=== PATIENT | male | born 1995 | race Caucasian/White ===

== ENCOUNTER 2023-10-23 10:37 | Emergency (ER) | payer OTHER, SELFPAY ==
[2023-10-23 10:52] VITALS: BP 115/77; PULSE 97; RESP 16; TEMP 37.3; O2SAT 99; BMI 19.3
--- NOTE | 2023-10-23 11:26 | ED_ITS ---
HPI - Male Genitourinary General Chief complaint: Urogenital-Male Stated complaint: Genital issues Time Seen by Provider: 10/23/23 11:44 Source: patient Mode of arrival: ambulatory Limitations: no limitations History of Present Illness HPI Narrative: 27 year old male with no significant pmhx presents to the ED for evaluation of yellow penile discharge that began yesterday. He is sexually active with new sexual partner. Admits to recent unprotected intercourse. Reports noticing yellow discharged coming from his penis yesterday. Denies penile itching, lesions, warts, ulcers. Denies scrotal pain, swelling, redness, irritation. Denies fever, chills, dysuria, hematuria, abdominal pain. Related Data Allergies Allergy/AdvReac Type Severity Reaction Status Date / Time No Known Allergies Allergy Verified 10/23/23 10:55 Review of Systems Review of Systems: Constitutional: No fever, chills, fatigue, night sweats, weight changes ENT/Mouth: No ear pain, hearing loss, nasal congestion, sinus pain, rhinorrhea, sore throat Eyes: No eye pain, swelling, redness, vision changes, discharge Cardio: No chest pain, palpitations, ACHARYA, orthopnea, peripheral edema Pulm: No SOB, cough, sputum, wheezing, dyspnea, hemoptysis GI: No nausea, vomiting, hematemesis, abdominal pain, diarrhea, constipation, hematochezia, melena : No irregular bleeding, dysuria, frequency, urgency, hesitancy, hematuria, flank pain, urinary flow changes, urinary incontinence or retention, +penile discharge MSK: No back pain, neck pain, joint pain, myalgias Skin: No lesions, rashes Neuro: No weakness, numbness, paresthesias, LOC, dizziness, headache All other systems reviewed and are negative. [facility] Past Medical History Attestation statement: The following information was validated with the patient. Source: old records reviewed and nursing notes reviewed Onset Date is defined in the Problem List Problems that require an onset date and time if occurred within 24 hrs of arrival to the ED Aortic Dissection and Rupture; Neurologic impairment; Cardiopulmonary Arrest; Endotracheal Intubation; Insertion or Replacement of Mechanical Circulatory Assist Device Social History Social History Advance Directives: No Advance Directives Information Provided: No Physical Exam Vital Signs: Vital Signs: Last Vital Signs Temp 99.2 F 10/23/23 10:52 Pulse 97 10/23/23 10:52 Resp 16 10/23/23 10:52 BP 115/77 10/23/23 10:52 Pulse Ox 99 10/23/23 10:52 O2 Del Method Room Air 10/23/23 10:52 BMI result Body Mass Index 19.3 Vital signs stable. Const: General: cooperative, healthy appearing, comfortable and no acute distress Nutritional Appearance: average body habitus Orientation/consciousness: patient oriented x3 Limitations: no limitations Eyes: General: appearance normal, both eyes and all related structures Conjunctivae: conjunctivae normal Sclerae: sclerae normal Pupils: Equal, round and reactive pupils present Resp: Effort & Inspection: normal respiratory effort Auscultation: clear to auscultation bilaterally Cardio: Rate: regular rate Rhythm: regular rhythm GI: Other: + abdomen soft, nondistended, nontender to palpation, no rebound tenderness or guarding. Normoactive BS x4. No inguinal or femoral LAD. No palpable hernia. Inspection: Yes normal to inspection : Other: Male sensitive exam performed with SELVIN Mccormick [facility]. The penis is circumcised. There are no lesions, ulcers, warts noted to the glans or shaft. There is purulent discharge expressible from urethra. No blood. No palpable inguinal or femoral LAD. No scrotal edema or erythema. Perineum wnl. General: Yes no CVA tenderness Back/Spine/Pelvis: Back: no CVA tenderness Skin: General skin exam: no rashes or lesions noted Neuro: General: patient oriented x3 Cranial nerves: Yes Equal, round and reactive pupils present Course Course Course Narrative: 1435-- urine negative for infection however shows large amount of white blood cells likely consistent with STI. CT NG swab returned positive for gonorrhea, negative for chlamydia. Informed patient of his serology results. Will treat him with 1 dose of ceftriaxone in the emergency department. Informed him to abstain from intercourse until he has a negative test result. Advised him to inform all sexual partners as they need to be tested and treated. > I personally filled out the gonorrhea reporting form and faxed it to [facility] of infectious disease prevention division of STD prevention and HIV/aids surveillance > Patient has remained stable throughout ED visit today. Discussed strict return precautions. All questions answered at this time. Patient is agreeable with disposition and stable for discharge. Medical Decision Making Medical Decision Making [facility] Narrative: 27 year old male with no significant pmhx presents to the ED for evaluation of yellow penile discharge that began yesterday. Vital signs stable. Afebrile. On exam, patient is nontoxic-appearing and in no acute distress. Abdomen is soft, ND/NT, no rebound tenderness or guarding. Normoactive bowel sounds x4. No CVAT bilaterally. On sensitive exam, the penis is circumcised. There are no lesions, ulcers, warts noted to the glans or shaft. There is purulent discharge expressible from urethra. No blood. No palpable inguinal or femoral LAD. No scrotal edema or erythema. Perineum wnl. Clinical concern for sexually transmi tted infection, urinary tract infection. Lower suspicion for syphilis, HIV/aids. Unlikely fourniers gangrene. Plan for UA, std panel and treatment as appropriate. Differential Diagnosis Differential Diagnoses: The differential diagnosis associated with the presentation includes as above. Admission/Observation not indicated. Lab Data [facility] Lab Attestation statement: I reviewed the patient's lab results. As above. Labs: Lab Results 10/23/23 Range/Units 12:30 Urine Color Yellow Urine Appearance Turbid Urine pH 8.0 (5.0-9.0) Ur Specific Ethel 1.020 (1.005-1.025) Urine Protein Negative (Neg-Trace) mg/dL Urine Glucose (UA) Negative (Negative) mg/dL Urine Ketones Negative (Negative) mg/dL Urine Blood Negative (Negative) Urine Nitrite Negative (Negative) Ur Leukocyte Esterase Moderate (2+) H (Negative) Urine RBC 0-2 (0-2) /HPF Urine WBC >50 H (0-5) /HPF Ur Squamous Epith Cells 0-2 (0-2) /HPF Urine Bacteria None Seen (None Seen) Hyaline Casts 0-2 (0-2) /LPF Chlam trachomat DNA PCR NOT DETECTED (Not Detect.) N.gonorrhoeae DNA (PCR) DETECTED A (Not Detect.) Prescription Management I considered prescription management with: Antibiotic Social Determinants Patient?s care significantly limited by Social Determinants of Health including: Other Social Determinant of Health Discharge Plan Discharge Clinical Impression: STI (sexually transmitted infection), Gonorrhea in male Patient Disposition: Home, Self-Care Instructions: Sexually Transmitted Diseases (ED), Male Condom Use (ED), Gonorrhea (ED) Additional Instructions: Your urine was negative for infection today. Your STI test returned positive for gonorrhea. You tested negative for chlamydia. The treatment for gonorrhea is a one time dose of ceftriaxone which you received in the emergency department today. Please follow-up with PCP in 2-4 weeks to ensure gonorrhea is gone after treatment. Abstain from sexual intercourse until you tested negative for gonorrhea. Inform all sexual partners as they also need to be tested and treated. Make sure you are using protection when engaging in intercourse. If symptoms persist or worsen please return to the emergency department. In the case of an emergency call 911. Referrals: Physician,Unknown J [Primary Care Provider] - Stand Alone Forms: Work/School Release
[2023-10-23 12:44] LABS: Appearance Urine Turbid; Color Urine Yellow; Glucose Urine UA Negative (Negative); Leukocyte Esterase Urine Moderate (2+) (Negative); Nitrite Urine Negative (Negative); UMIC TRIGGER UACC YES; Urine Blood Negative (Negative); Urine Ketones Negative (Negative); Urine Protein Negative (Neg-Trace)
[2023-10-23 13:05] LABS: Bacteria Urine None Seen (None Seen); Hyaline Casts Urine 0-2 /LPF (0-2); RBC Urine 0-2 /HPF (0-2); Squamous Epithelial Cell Urine 0-2 /HPF (0-2); UACC Culture Trigger YES; WBC Urine >50 /HPF (0-5)
[2023-10-23 14:17] LABS: CT PCR NOT DETECTED (Not Detect.); NG PCR DETECTED (Not Detect.)
[2023-10-23] MEDS: cefTRIAXone sodium 500 MG, Lidocaine HCl 1 % MPF 1 ML IM (14:46)
== END 2023-10-23 14:51 | disposition home or self-care (01) ==
PROVIDERS: Emergency Provider Emergency Medicine
DX: A54.9 Gonococcal infection, unspecified (principal); R36.9 Urethral discharge, unspecified; Z20.2 Contact with and (suspected) exposure to infections with a predominantly sexual mode of transmission
CPT/HCPCS: 0353U; 81001; 81003; 87086; 96372; 99284; J0696

== ENCOUNTER 2023-12-07 14:28 | Emergency (ER) | payer OTHER, SELFPAY ==
[2023-12-07 15:20] VITALS: BP 117/85; PULSE 85; RESP 20; TEMP 37; O2SAT 99; BMI 22.4
--- NOTE | 2023-12-07 15:24 | ED.MALEGU ---
HPI - Male Genitourinary General Chief complaint: Urogenital-Male Stated complaint: UTI ? Time Seen by Provider: 12/07/23 15:26 Source: patient Mode of arrival: ambulatory Limitations: no limitations History of Present Illness HPI Narrative: 28-year-old male presents for evaluation of yellow/green penile discharge ongoing for the past few weeks. Patient reports he had this got treated for it in October , then slept with the same person now again having symptoms. Patient denies urinary symptoms, abdominal pain, nausea, vomiting, diarrhea, fevers, chills, chest pain, shortness of breath. Patient has history of gonorrhea. Related Data Previous Rx's Medication Instructions Recorded doxycycline hyclate 100 mg capsule 100 mg PO BID 10 days #20 caps 12/07/23 metronidazole 500 mg tablet 500 mg PO BID 7 days #14 tabs 12/07/23 Allergies Allergy/AdvReac Type Severity Reaction Status Date / Time No Known Allergies Allergy Verified 12/07/23 15:23 Review of Systems Review of Systems: Yes all other systems are reviewed and are negative PMFSH Past Medical History Attestation statement: The following information was validated with the patient. Source: old records reviewed and nursing notes reviewed Social History Social History Advance Directives: No Advance Directives Information Provided: No Physical Exam Vital Signs: Vital Signs: Last Vital Signs Temp 98.6 F 12/07/23 15:20 Pulse 85 12/07/23 15:20 Resp 20 12/07/23 15:20 BP 117/85 12/07/23 15:20 Pulse Ox 99 12/07/23 15:20 O2 Del Method Room Air 12/07/23 15:20 BMI result Body Mass Index 22.4 vss Appearance: Alert.? Oriented X3.? No acute distress.? Head: Normocephalic, atraumatic, no step-offs or deformities Eyes: Pupils equal, round and reactive to light.? CVS: Normal heart rate and rhythm.? Pulses normal.? Respiratory: No respiratory distress.? Breath sounds normal.? Abdomen: Soft and nontender.? Skin: Skin warm and dry.? Normal skin color.? Normal skin turgor.? Extremities: No lower extremity edema.? No calf ttp. 5/5 strength to bilateral upper and lower extremities Neuro: Oriented X 3.? No motor deficit.? No sensory deficit. CN 2-12 intact Course Reevaluation(s) Reevaluation #1: I did fill out the state mandated report forearm to [facility]. Electronic version. Confirmatory email sent to my e-mail if needed. Patient will be called with results at a later time. During his visit he did receive adequate treatment. Again will advise him to seek full panel STD testing Time: 08:11 Medications Administered Discontinued Medications Generic Name Dose Route Start Last Admin Trade Name Frankie PRN Reason Stop Dose Admin Ceftriaxone Sodium 500 mg/ 0 mg 12/07/23 15:22 12/07/23 15:57 Lidocaine HCl 1 ml IM 12/07/23 15:23 500 kit ONCE ONE Administration Doxycycline Monohydrate 100 mg 12/07/23 15:22 12/07/23 15:58 Doxycycline Monohydrate 100 Mg Capsule PO 12/07/23 15:23 100 mg ONCE ONE Administration Metronidazole 500 mg 12/07/23 15:31 12/07/23 15:58 Metronidazole 500 Mg Tablet PO 12/07/23 15:32 500 mg ONCE ONE Administration Medical Decision Making Medical Decision Making [facility] Narrative: 28-year-old male presents requesting STD treatment/diagnosis. Reporting yellow/green discharge from penis. Physical exam unremarkable. Deferred sensitive exam History and physical exam concerning for STD. Will also rule out UTI. Unlikely torsion Patient agrees to prophylactic treatment for gonorrhea, chlamydia and trichomonas. 500mg IM ceftriaxone has been given here and scripts for doxycycline 100 mg po BID X 7 days and metronidazole 500 mg po BID X 7 days have been given to the patient. Educated on safe sex practices, full pannel STD testing and speaking to? partners on possible STD. Differential Diagnosis Differential Diagnoses: The differential diagnosis associated with the presentation includes History and physical exam concerning for STD. Will also rule out UTI. Unlikely torsion Admission/Observation Consideration of admission/observation: Escalation of care including admission/observation considered Unlikely Lab Data [facility] Lab Attestation statement: I reviewed the patient's lab results. Labs: Lab Results 12/07/23 Range/Units 16:18 Chlam trachomat DNA PCR NOT DETECTED (Not Detect.) N.gonorrhoeae DNA (PCR) DETECTED A (Not Detect.) Prescription Management I considered prescription management with: Pain Medication Chronic Conditions Patient?s care impacted by: Other (Previous STD) Critical Care Time Critical Care Time Critical Care Time: Yes Total Critical Care Time: 35 Attestation: I attest to this time spent taking care of the patient, obtaining history, physical, reviewing labs, imaging, speaking to my attending, speaking to specialist. Discharge Plan Discharge Clinical Impression: Concern about STD in male without diagnosis Patient Disposition: Home, Self-Care Additional Instructions: Take your medications as prescribed. If you were prescribed antibiotics today, it is important that you take your medication to their entirety, do not skip any doses, do not finish them early. Follow-up with your primary care provider this week. Return to the emergency department with new or worsening symptoms. Such as fevers, chills, chest pain, shortness of breath, nausea, vomiting, dizziness, headache, vision changes, lethargy In case of emergency call 911 You were treated here today with ceftriaxone, a medication that treats gonorrhea. I have sent to your pharmacy Metronidazole that covers trichomonas, and Doxycycline which covers for chlamydia. Please be reevaluated by a healthcare provider after completing your antibiotics. Do not stop them early, do not skip any doses. Until you are reevaluated by a health care provider please practice safe sex as disucussed. Please also have a conversation with your sexual partners.? I also advise you to obtain full panel STD testing to test for other STDs including HIV, Hepatitis B & C and syphilis with your PCP or a local clinic. Prescriptions: New doxycycline hyclate 100 mg capsule 100 mg PO BID 10 Days Qty: 20 0RF metronidazole 500 mg tablet 500 mg PO BID 7 Days Qty: 14 0RF Referrals: Physician,Unknown J [Primary Care Provider] - 2 days Stand Alone Forms: Work/School Release Interventions: ED Discharge Assessment Last Done: 12/07/23 16:22 Discharge Date/Time: 12/07/23 16:22
[2023-12-07] MEDS: cefTRIAXone sodium 500 MG, Lidocaine HCl 1 % MPF 1 ML IM (15:57)
[2023-12-07] MEDS: Doxycycline Monohydrate 100 MG CAPSULE PO (15:58)
[2023-12-07] MEDS: metroNIDAZOLE 500 MG TABLET PO (15:58)
[2023-12-07 18:09] LABS: CT PCR NOT DETECTED (Not Detect.); NG PCR DETECTED (Not Detect.)
== END 2023-12-07 16:22 | disposition home or self-care (01) ==
PROVIDERS: Nurse Practitioner Family; Emergency Provider Emergency Medicine
DX: R36.9 Urethral discharge, unspecified (principal); Z86.19 Personal history of other infectious and parasitic diseases
CPT/HCPCS: 0353U; 96372; 99282; 99284; J0696